=== PATIENT | male | born 1990 | race Native Hawaiian/Other Pacific Islander ===

== ENCOUNTER 2018-03-31 22:26 | Emergency (ER) | payer SELFPAY ==
[2018-03-31 22:37] VITALS: BP 146/86; PULSE 90; RESP 18; TEMP 98.3; O2SAT 100
--- NOTE | 2018-03-31 23:11 | C.PDOC ---
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 Denies weakness or numbness. Tetanus is up to date. Time Seen by Provider: 03/31/18 22:57 Chief Complaint (Nursing): Abnormal Skin Integrity History Per: Patient History/Exam Limitations: no limitations Onset/Duration Of Symptoms: Hrs Current Symptoms Are (Timing): Still Present Location Of Injury: Right: Hand (Dorsum) Quality Of Symptoms: Other (Laceration) Recent travel outside of the [place]: No Past Medical History Reviewed: Historical Data, Nursing Documentation, Vital Signs Vital Signs: Last Vital Signs Temp 98.3 F 03/31/18 22:32 Pulse 90 03/31/18 22:32 Resp 18 03/31/18 22:32 BP 146/86 03/31/18 22:32 Pulse Ox 100 03/31/18 22:32 Family History: States: No Known Family Hx - Social History Hx Alcohol Use: Yes Hx Substance Use: No - Immunization History Hx Tetanus Toxoid Vaccination: Yes (04/2017) Hx Influenza Vaccination: Yes (04/2017) Review Of Systems Skin: Positive for: Other (Laceration) Neurological: Negative for: Weakness, Numbness Physical Exam - Physical Exam Appears: Non-toxic Skin: Warm, Dry Head: Atraumatic, Normacephalic Eye(s): bilateral: Normal Inspection Extremity: Normal ROM (x4), Capillary Refill (<2 seconds), Other (1cm linear superficial laceration to dorsum of right middle finger, no active bleeding) Pulses: Left Radial: Normal, Right Radial: Normal Neurological/Psych: Oriented x3, Normal Speech, Normal Motor, Normal Sensation ED Course And Treatment O2 Sat by Pulse Oximetry: 100 (Room air) Pulse Ox Interpretation: Normal Progress Note: Patient tolerated laceration repair without any difficulty, placed in finger splint for support. Patient discharged home with proper wound care instructions and advised to follow up with PMD. Laceration - Laceration Repair Right middle finger Wound Length (In cm): 1 Description Of Wound: Linear Wound Cleansed With: Sterile Saline Wound Examination: Irrigated With Saline, No FB With Wound Exploration, No Tendon Injury With Wound Exploration Wound Closure: Steri Strips, Skin Glue (Dermabond) Wound Complexity: Simple Disposition - Disposition Referrals: Non [facility] Provider, [Primary Care Provider] - Disposition: HOME/ ROUTINE Disposition Time: 23:04 Condition: STABLE Additional Instructions: Follow up with PMD within 1-2 days. Return to ED if feel worse Instructions: Laceration Repair With Glue (DC), Common Finger Injuries Forms: [facility] (Syrian) - Clinical Impression Clinical Impression: Finger laceration - PA / [employer] / Resident Statement MD/DO has reviewed & agrees with the documentation as recorded. - Scribe Statement The provider has reviewed the documentation as recorded by the Scribmillie Colvin All medical record entries made by the Joselinibmillie were at my direction and personally dictated by me. I have reviewed the chart and agree that the record accurately reflects my personal performance of the history, physical exam, medical decision making, and the department course for this patient. I have also personally directed, reviewed, and agree with the discharge instructions and disposition.
== END 2018-03-31 23:15 | disposition home or self-care (01) ==
LOC: C.ER 22:26 → SUPCPDRO 22:26 → C.ER 23:15
DX: S61.212A Laceration without foreign body of right middle finger without damage to nail, initial encounter (principal); Y93.G3 Activity, cooking and baking